=== PATIENT | female | born 1945 | race Caucasian/White ===

== ENCOUNTER → 2017-09-08 | Outpatient (CLI) | payer OTHER, MEDICARE | LOC: FIMAGING 13:41 | PROVIDERS: ATTEND Internal Medicine | DX: Z12.31 Encounter for screening mammogram for malignant neoplasm of breast (principal) | CPT/HCPCS: G0202 ==

== ENCOUNTER 2018-12-05 14:58 | Inpatient (IN) | payer OTHER, MEDICARE ==
[2018-12-05 15:33] LABS: PLATELET COUNT 377 10^3/uL (150-400)
--- NOTE | 2018-12-05 15:38 | EDPHY ---
H & P Stated Complaint: SOB, feeling off balance x 4 days- Time Seen by Provider: 12/05/18 15:03 HPI/ROS: CHIEF COMPLAINT: Shortness of breath, dizziness HISTORY OF PRESENT ILLNESS: 73-year-old female with chronic pain and hypertension presents with shortness of breath and dizziness. She has been on oxycodone and OxyContin for several years. 2 weeks ago, the oxycodone and OxyContin were discontinued and she was placed on Suboxone. Since starting Suboxone, she has felt lightheaded. A few days after starting Suboxone, her dose was cut in half, in hopes of alleviating the dizziness. However, the dizziness has gradually progressed and now she has several episodes daily of dizziness. She describes these episodes as occufring when standing, feeling dizzy, then "falling asleep", and catching herself before she falls. She has not fallen to the ground or hurt herself. She also has a 2 day history of shortness of breath. Shortness of breath at rest, exacerbated by exertion. No recent URI symptoms or fever. Ongoing pedal edema, without recent change. No prior history of cardiopulmonary disease. She also has a 2-3 night history of nocturnal urinary incontinence. She is not incontinent during the day and denies other urinary symptoms. REVIEW OF SYSTEMS: complete 10 point ROS reviewed and is negative except for the noted elements in the HPI - Medical/Surgical History Hx Asthma: No Hx Chronic Respiratory Disease: No Hx Diabetes: No Hx Cardiac Disease: Yes Hx Renal Disease: No Hx Cirrhosis: No Hx Alcoholism: No Hx HIV/AIDS: No Hx Splenectomy or Spleen Trauma: No Other PMH: htn, chronic shoulder pain, hypothyroid, hyperlipidemia, anxiety - Social History Smoking Status: Never smoked Alcohol Use: Sober Drug Use: None Additional Social History: Lives alone in own home - Physical Exam Exam: General Appearance: Alert, pleasant and talkative, seems slightly confused Eyes: Pupils equal and round, no conjunctival pallor or injection ENT, Mouth: Mucous membranes moist Neck: Normal inspection Respiratory: Rales right mid lung field Cardiovascular: Regular rate and rhythm Gastrointestinal: Abdomen is soft and nontender Neurological: Alert and oriented, cranial nerves 2-12 intact, motor 5/5, sensory intact to light touch, ambulates with a steady gait Skin: Warm and dry, no rash Extremities: Nontender, 2+ pedal edema Psychiatric: Mood and affect normal Constitutional: Initial Vital Signs Temperature (C) 36.7 C 12/05/18 15:02 Heart Rate 72 12/05/18 15:02 Respiratory Rate 16 12/05/18 15:02 Blood Pressure 149/68 H 12/05/18 15:02 O2 Sat (%) 86 L 12/05/18 15:02 O2 Delivery Mode Room Air Allergies/Adverse Reactions: Sulfa (Sulfonamide Antibiotics) [Sulfa(Sulfonamide Antibiotics)] Allergy ( Verified 02/25/13 12:42) Other-Enter Comments Home Medications: Medication Instructions Recorded DULoxetine [Cymbalta 60 MG (RX)] 60 mg PO HS 02/25/13 Levothyroxine [Synthroid 100 mcg 100 mcg PO HS 02/25/13 (RX)] Lisinopril [Zestril 40 mg (RX)] 40 mg PO HS 02/25/13 Atorvastatin Calcium [Lipitor 10 5 mg PO HS 12/05/18 mg (*)] Buprenorphine HCl/Naloxone HCl 0.5 each SL BID 12/05/18 [Suboxone 8 mg-2 mg Sl Film] Gabapentin 2,400 mg PO HS 12/05/18 Hydrochlorothiazide [HCTZ (*)] 25 mg PO HS 12/05/18 Omeprazole 40 mg PO HS 12/05/18 amLODIPine BESYLATE [Norvasc 2.5 2.5 mg PO HS 12/05/18 mg (*)] buPROPion XL [Wellbutrin Xl] 450 mg PO HS 12/05/18 Medical Decision Making - Diagnostics EKG Interpretation: EKG interpreted by me reveals normal sinus rhythm, rate 68, minimal ST segment elevation in V2, T-wave flattening in the lateral leads. Interpretation: abnormal EKG Imaging Results: Imaging Impressions Head CT 12/05/18 15:40 Impression: 1. No definite acute findings. If symptoms persist and clinical suspicion warrants, consider MRI. 2. Tiny probable calcification in the right frontal lobe. 3. Diffuse cerebral atrophy, with periventricular and subcortical low attenuation consistent with chronic microvascular ischemic gliosis. Findings discussed with Rhiannon Sequeira M.D., on December 05, 2018 at 1629. Chest/Thorax CTA 12/05/18 15:54 Impression: 1. No visible pulmonary embolus. 2. Bilateral ground glass opacities and interlobular septal thickening with tiny effusions consistent with pulmonary edema. 3. Borderline pulmonary artery prominence, which can be seen with pulmonary artery hypertension. 4. Additional findings as above. Findings discussed with RHIANNON SEQUEIRA 12/05/2018 at 16:39. Imaging: Discussed imaging studies w/ call center trainer Radiologist ED Course/Re-evaluation: This patient presents with multiple symptoms, including a 2 week history of dizziness and 2 day h/o SOB. Oxygen saturation is 86% on room air and chest exam reveals rales in the right mid lung field. EKG reveals no evidence of acute ischemia or dysrhythmia and initial troponin is normal. D-dimer elevated at 2, CT pulmonary angiogram ordered. CT pulmonary angiogram reveals congestive heart failure; no evidence of pulmonary embolism. Lasix 20 mg IV and aspirin given. In regards to confusion, this is most likely secondary to Suboxone and/or hypoxia. CT scan of the brain ordered to rule out intracranial pathology and reveals an old left lacunar infarct, no acute hemorrhage or infarct. Neurologic exam is unremarkable and patient ambulates with a steady gait. No sign of CVA. The hospitalist service was consulted for admission. Differential Diagnosis: Differential diagnosis for shortness of breath includes though it is not limited to pneumonia, pneumothorax, pulmonary embolism, pericarditis, acute coronary syndrome. - Data Points Laboratory Results: Laboratory Results 12/05/18 15:19 12/05/18 15:19 12/05/18 12/05/18 12/05/18 16:38 15:22 15:19 WBC RBC Hgb Hct MCV MCH MCHC RDW Plt Count MPV Neut % (Auto) Lymph % (Auto) Cole % (Auto) Eos % (Auto) Baso % (Auto) Nucleat RBC Rel Count Absolute Neuts (auto) Absolute Lymphs (auto) Absolute Monos (auto) Absolute Eos (auto) Absolute Basos (auto) Absolute Nucleated RBC Immature Gran % Immature Gran # RBC/WBC/PLT Morphology Platelet Estimate D-Dimer Sodium Potassium 3.7 mEq/L mEq/L (3.5-5.2) Chloride Carbon Dioxide Anion Gap BUN Creatinine Estimated GFR Glucose Calcium Magnesium 2.1 mg/dL mg/dL (1.6-2.3) POC Troponin I 0.01 ng/mL ng/mL (0.00-0.08) NT-Pro-B Natriuret Pep TSH Free T4 0.60 ng/dL ng/dL (0.59-2.19) Total T3 0.871 ng/mL L ng/mL (0.970-1.690) Urine Color PALE YELLOW Urine Appearance CLEAR Urine pH 7.0 (5.0-7.5) Ur Specific [place] 1.011 (1.002-1.030) Urine Protein NEGATIVE (NEGATIVE) Urine Ketones 1+ H (NEGATIVE) Urine Blood 2+ H (NEGATIVE) Urine Nitrate NEGATIVE (NEGATIVE) Urine Bilirubin NEGATIVE (NEGATIVE) Urine Urobilinogen NEGATIVE EU EU (0.2-1.0) Ur Leukocyte Esterase NEGATIVE (NEGATIVE) Urine RBC 3-5 /hpf H /hpf (0-3) Urine WBC 0-1 /hpf /hpf (0-3) Ur Epithelial Cells TRACE /lpf /lpf (NONE-1+) Urine Glucose NEGATIVE (NEGATIVE) 12/05/18 12/05/18 12/05/18 15:19 15:19 15:19 WBC RBC Hgb Hct MCV MCH MCHC RDW Plt Count MPV Neut % (Auto) Lymph % (Auto) Cole % (Auto) Eos % (Auto) Baso % (Auto) Nucleat RBC Rel Count Absolute Neuts (auto) Absolute Lymphs (auto) Absolute Monos (auto) Absolute Eos (auto) Absolute Basos (auto) Absolute Nucleated RBC Immature Gran % Immature Gran # RBC/WBC/PLT Morphology Platelet Estimate D-Dimer 2.08 ug/mLFEU H ug/mLFEU (0.00-0.50) Sodium 129 mEq/L L mEq/L (135-145) Potassium 3.4 mEq/L L mEq/L (3.5-5.2) Chloride 91 mEq/L L mEq/L (97-110) Carbon Dioxide 27 mEq/l mEq/l (22-31) Anion Gap 11 mEq/L mEq/L (6-14) BUN 13 mg/dL mg/dL (7-23) Creatinine 0.5 mg/dL L mg/dL (0.6-1.0) Estimated GFR > 60 Glucose 92 mg/dL mg/dL (70-100) Calcium 8.7 mg/dL mg/dL (8.5-10.4) Magnesium POC Troponin I NT-Pro-B Natriuret Pep 1430 pg/mL H pg/mL (0-125) TSH 23.700 uIU/mL H uIU/mL (0.465-4.680) Free T4 Total T3 Urine Color Urine Appearance Urine pH Ur Specific [place] Urine Protein Urine Ketones Urine Blood Urine Nitrate Urine Bilirubin Urine Urobilinogen Ur Leukocyte Esterase Urine RBC Urine WBC Ur Epithelial Cells Urine Glucose 12/05/18 15:19 WBC 8.98 10^3/uL 10^3/uL (3.80-9.50) RBC 3.21 10^6/uL L 10^6/uL (4.18-5.33) Hgb 10.6 g/dL L g/dL (12.6-16.3) Hct 30.3 % L % (38.0-47.0) MCV 94.4 fL fL (81.5-99.8) MCH 33.0 pg pg (27.9-34.1) MCHC 35.0 g/dL g/dL (32.4-36.7) RDW 14.0 % % (11.5-15.2) Plt Count 377 10^3/uL 10^3/uL (150-400) MPV 8.3 fL L fL (8.7-11.7) Neut % (Auto) 88.0 % H % (39.3-74.2) Lymph % (Auto) 3.3 % L % (15.0-45.0) Cole % (Auto) 7.0 % % (4.5-13.0) Eos % (Auto) 1.2 % % (0.6-7.6) Baso % (Auto) 0.2 % L % (0.3-1.7) Nucleat RBC Rel Count 0.0 % % (0.0-0.2) Absolute Neuts (auto) 7.90 10^3/uL H 10^3/uL (1.70-6.50) Absolute Lymphs (auto) 0.30 10^3/uL L 10^3/uL (1.00-3.00) Absolute Monos (auto) 0.63 10^3/uL 10^3/uL (0.30-0.80) Absolute Eos (auto) 0.11 10^3/uL 10^3/uL (0.03-0.40) Absolute Basos (auto) 0.02 10^3/uL 10^3/uL (0.02-0.10) Absolute Nucleated RBC 0.00 10^3/uL 10^3/uL (0-0.01) Immature Gran % 0.3 % % (0.0-1.1) Immature Gran # 0.03 10^3/uL 10^3/uL (0.00-0.10) RBC/WBC/PLT Morphology TNP Platelet Estimate TNP D-Dimer Sodium Potassium Chloride Carbon Dioxide Anion Gap BUN Creatinine Estimated GFR Glucose Calcium Magnesium POC Troponin I NT-Pro-B Natriuret Pep TSH Free T4 Total T3 Urine Color Urine Appearance Urine pH Ur Specific [place] Urine Protein Urine Ketones Urine Blood Urine Nitrate Urine Bilirubin Urine Urobilinogen Ur Leukocyte Esterase Urine RBC Urine WBC Ur Epithelial Cells Urine Glucose Medications Given: Amlodipine Besylate (Norvasc) 2.5 mg PO [facility] Stop: 06/03/19 20:59 Last Admin: 12/05/18 21:51 Dose: 2.5 mg Atorvastatin Calcium (Lipitor) 5 mg PO [facility] Stop: 06/03/19 20:59 Last Admin: 12/05/18 21:49 Dose: 5 mg Bupropion HCl (Wellbutrin Xl) 450 mg PO [facility] Stop: 06/03/19 20:59 Last Admin: 12/05/18 21:48 Dose: 450 mg Duloxetine HCl (Cymbalta) 60 mg PO [facility] Stop: 06/03/19 20:59 Last Admin: 12/05/18 21:50 Dose: 60 mg Gabapentin (Neurontin) 1,200 mg PO BID [facility] Stop: 06/03/19 20:59 Last Admin: 12/05/18 21:47 Dose: 1,200 mg Lisinopril (Zestril) 40 mg PO [facility] Stop: 06/03/19 20:59 Last Admin: 12/05/18 21:48 Dose: 40 mg Pantoprazole Sodium (Protonix) 40 mg PO [facility] Stop: 06/03/19 20:59 Last Admin: 12/05/18 21:48 Dose: 40 mg Discontinued Medications Aspirin (Aspirin) 324 mg PO EDNOW ONE Stop: 12/05/18 16:56 Last Admin: 12/05/18 17:25 Dose: 324 mg Furosemide (Lasix Injection) 20 mg IVP EDNOW ONE Stop: 12/05/18 16:56 Last Admin: 12/05/18 17:25 Dose: 20 mg Potassium Chloride (Klor Packets) 40 meq PO ONCE ONE Stop: 12/05/18 18:00 Last Admin: 12/05/18 21:52 Dose: Not Given Potassium Chloride (Klor-Con) 40 meq PO ONCE ONE Stop: 12/05/18 19:46 Last Admin: 12/05/18 21:53 Dose: 40 meq Potassium Chloride (Klor-Con) 10 meq PO ONCE ONE PRN Reason: Protocol Stop: 12/05/18 21:14 Last Admin: 12/05/18 21:56 Dose: Not Given Point of Care Test Results: Chemistry 12/05/18 15:22 POC Troponin I 0.01 ng/mL ng/mL (0.00-0.08) Departure - [facility] Clinical Impression: Congestive heart failure Qualifiers: Heart failure type: unspecified Heart failure chronicity: acute Qualified Code( s): I50.9 - Heart failure, unspecified Condition: Fair
[2018-12-05] MEDS ORDERED: IOHEXOL 350mgI/ML (OMNIPAQUE) 150 ML BTL IV ONE (16:03)
[2018-12-05] MEDS ORDERED: ASPIRIN 81 MG CHEWABLE TAB PO ONE (16:55)
[2018-12-05] MEDS ORDERED: FUROSEMIDE 20 MG/2 ML VIAL IVP ONE (16:55)
[2018-12-05] MEDS ORDERED: ONDANSETRON 4 MG/2 ML VIAL IVP PRN (17:42)
[2018-12-05] MEDS ORDERED: ACETAMINOPHEN 325 MG TAB PO PRN (17:42)
[2018-12-05] MEDS ORDERED: ONDANSETRON DISINTEGRATING 4 MG TAB PO PRN (17:42)
[2018-12-05] MEDS ORDERED: PROTOCOL POTASSIUM 1 DOSE MISC PRN (17:49)
--- NOTE | 2018-12-05 18:07 | CPEKG ---
Test Reason : OPEN Blood Pressure : / mmHG Vent. Rate : 068 BPM Atrial Rate : 068 BPM P-R Int : 178 ms QRS Dur : 099 ms QT Int : 355 ms P-R-T Axes : 041 012 059 degrees QTc Int : 378 ms Sinus rhythm Minimal ST elevation, anterior leads nonspecific lateral T wave flattening Confirmed by Rhiannon Fuchs ([id number]) on 12/05/2018 6:06:41 PM Referred By: Rhiannon Fuchs Confirmed By:Rhiannon Fuchs
--- NOTE | 2018-12-05 18:13 | PDGENHP ---
<Wendy Sim - Last Filed: 12/05/18 19:30> History and Physical - Chief Complaint Dizziness, shortness of breath - History of Present Illness This is a 73 y/o female with history of chronic pain syndrome who utilized opiates (oxycodone and oxycontin) up until recently. She was switched to Suboxone 2 weeks ago and since that time, she has felt dizziness and describes multiple episodes of being upright and "blacking out" without mechanical injury. She is able to catch herself before she falls. She feels off balance. No preceding indicators to this besides feeling dizzy. She also has noticed shortness of breath, more so with exertion in the last 2 days. She also experienced nocturnal urinary incontinence. Occasionally, she experiences palpitations with no chest pains at rest. Because of her symptoms, she cut her Suboxone in half and stopped taking her blood pressure medication thinking these two medications were the cause. She continued to have these symptoms. She does have pedal edema that seems to be a chronic problem and has been evaluated by her PCP Dr. Shonna Jarrell last year. She is a poor historian however does not seem to have altered mental state. Denies nausea, vomiting, fevers, chills. She is being admitted for further diagnostic work-up and monitoring. Past Medical History 1. Chronic pain syndrome 2. Bipolar disorder 3. Cervical degenerative disc disease 4. Depression 5. Hypertension 6. Hyperlipidemia 7. Hypothyroidism 8. Idiopathic neuropathy 9. Peptic Ulcer Disease 10. Rheumatoid arthritis 11. Urge incontinence Past Surgical History 1. Meniscectomy Social 1. Lives alone. 2. Denies illicit drug use. Denies alcohol use. Smokes 5-6 cigarettes/day. History Information - Allergies/Home Medication List Allergies/Adverse Reactions: Sulfa (Sulfonamide Antibiotics) [Sulfa(Sulfonamide Antibiotics)] Allergy ( Verified 02/25/13 12:42) Other-Enter Comments Home Medications: DULoxetine [Cymbalta 60 MG (RX)] 60 mg PO HS 02/25/13 [Last Taken 12/04/18] Levothyroxine [Synthroid 100 mcg (RX)] 100 mcg PO HS 02/25/13 [Last Taken ] Lisinopril [Zestril 40 mg (RX)] 40 mg PO HS 02/25/13 [Last Taken 12/04/18] Atorvastatin Calcium [Lipitor 10 mg (*)] 5 mg PO HS 12/05/18 [Last Taken ] Buprenorphine HCl/Naloxone HCl [Suboxone 8 mg-2 mg Sl Film] 0.5 each SL BID [Last Taken 12/05/18 09:00] Gabapentin 2,400 mg PO HS 12/05/18 [Last Taken 12/04/18] Hydrochlorothiazide [HCTZ (*)] 25 mg PO HS 12/05/18 [Last Taken 12/04/18] Omeprazole 40 mg PO HS 12/05/18 [Last Taken 12/04/18] amLODIPine BESYLATE [Norvasc 2.5 mg (*)] 2.5 mg PO HS 12/05/18 [Last Taken 12/04] buPROPion XL [Wellbutrin Xl] 450 mg PO HS 12/05/18 [Last Taken 12/04/18] I have personally reviewed and updated: family history, medical history, social history, surgical history Past Medical History: See HPI list - Surgical History Additional surgical history: See HPI list - Family History Positive for: cancer - Social History Smoking Status: Current some day smoker Tobacco Use: Cigarettes Alcohol Use: Sober Drug Use: None Review of Systems Review of Systems: ROS: 10pt was reviewed & negative except for what was stated in HPI & below Constitutional: Reports: no symptoms EENMT: Reports: no symptoms Cardiac: Reports: lightheadedness, palpitations Respiratory: Reports: shortness of breath Gastrointestinal: Reports: constipation Genitourinary: Reports: incontinence, urgency Muscolosketal: Reports: other (Chronic pain) Skin: Reports: no symptoms Neurological: Reports: pre-existing deficit Hematologic/Lymphatic: Reports: no symptoms Immunologic/Allergy: Reports: other (Sulfa) Physical Exam Physical Exam: Lab data and imaging were reviewed Head CT: see A/P Chest/thorax CTA: see A/P EKG: SR, minimal ST elevation WBC: 8.98 RBC/H/H: 3.1/10.6/30.3 D-Dimer: 2.08 Na: 129 K: 3.4 BNP: 1430 Trop: 0.01 Temp Pulse Resp BP Pulse Ox 36.7 C 73 18 146/73 H 97 12/05/18 15:02 12/05/18 17:30 12/05/18 17:24 12/05/18 17:30 12/05/18 17:30 O2 (L/minute) 2 Constitutional: no apparent distress, appears nourished, not in pain Eyes: PERRL, anicteric sclera, EOMI Ears, Nose, Mouth, Throat: moist mucous membranes, hearing normal, ears appear normal, no oral mucosal ulcers Cardiovascular: regular rate and rhythym, systolic murmur, edema (Bilateral 2+ pitting pedal edema) Peripheral Pulses: 1+: dorsalis-pedis (R) (Radial 2+), dorsalis-pedis (L) ( Radial 2+) Respiratory: no respiratory distress, no rales or rhonchi, reduced air movement Gastrointestinal: normoactive bowel sounds, soft, non-tender abdomen, no palpable masses Genitourinary: no bladder fullness, no bladder tenderness Skin: warm, normal color, no rashes or abrasions, no fluctuance, no induration, No mottled Musculoskeletal: full muscle strength, no muscle tenderness, normal joint ROM, no joint effusions Neurologic: AAOx3, sensation intact bilaterally, CN II-XII Intact Psychiatric: not anxious, not encephalopathic, thought process linear, poor memory Lymph, Heme, Immunologic: no cervical LAD, no supraclavicular LAD Lab Data & Imaging Review 12/05/18 15:19 12/05/18 15:19 WBC 8.98 10^3/uL (3.80-9.50) 12/05/18 15: RBC 3.21 10^6/uL (4.18-5.33) L 12/05/18 15: Hgb 10.6 g/dL (12.6-16.3) L 12/05/18 15:19 Hct 30.3 % (38.0-47.0) L 12/05/18 15: MCV 94.4 fL (81.5-99.8) 12/05/18 15: MCH 33.0 pg (27.9-34.1) 12/05/18 15: MCHC 35.0 g/dL (32.4-36.7) 12/05/18 15: RDW 14.0 % (11.5-15.2) 12/05/18 15:19 Plt Count 377 10^3/uL (150-400) 12/05/18 15:19 MPV 8.3 fL (8.7-11.7) L 12/05/18 15:19 Neut % (Auto) 88.0 % (39.3-74.2) H 12/05/18 15:19 Lymph % (Auto) 3.3 % (15.0-45.0) L 12/05/18 15:19 Frontier % (Auto) 7.0 % (4.5-13.0) 12/05/18 15:19 Eos % (Auto) 1.2 % (0.6-7.6) 12/05/18 15:19 Baso % (Auto) 0.2 % (0.3-1.7) L 12/05/18 15:19 Nucleat RBC Rel Count 0.0 % (0.0-0.2) 12/05/18 15:19 Absolute Neuts (auto) 7.90 10^3/uL (1.70-6.50) H 12/05/18 15:19 Absolute Lymphs (auto) 0.30 10^3/uL (1.00-3.00) L 12/05/18 15:19 Absolute Monos (auto) 0.63 10^3/uL (0.30-0.80) 12/05/18 15:19 Absolute Eos (auto) 0.11 10^3/uL (0.03-0.40) 12/05/18 15:19 Absolute Basos (auto) 0.02 10^3/uL (0.02-0.10) 12/05/18 15:19 Absolute Nucleated RBC 0.00 10^3/uL (0-0.01) 12/05/18 15:19 Immature Gran % 0.3 % (0.0-1.1) 12/05/18 15:19 Immature Gran # 0.03 10^3/uL (0.00-0.10) 12/05/18 15:19 RBC/WBC/PLT Morphology TNP 12/05/18 15:19 Platelet Estimate TNP 12/05/18 15:19 D-Dimer 2.08 ug/mLFEU (0.00-0.50) H 12/05/18 15:19 Sodium 129 mEq/L (135-145) L 12/05/18 15:19 Potassium 3.4 mEq/L (3.5-5.2) L 12/05/18 15:19 Chloride 91 mEq/L (97-110) L 12/05/18 15:19 Carbon Dioxide 27 mEq/l (22-31) 12/05/18 15:19 Anion Gap 11 mEq/L (6-14) 12/05/18 15:19 BUN 13 mg/dL (7-23) 12/05/18 15:19 Creatinine 0.5 mg/dL (0.6-1.0) L 12/05/18 15:19 Estimated GFR > 60 12/05/18 15:19 Glucose 92 mg/dL (70-100) 12/05/18 15:19 Calcium 8.7 mg/dL (8.5-10.4) 12/05/18 15:19 POC Troponin I 0.01 ng/mL (0.00-0.08) 12/05/18 15:22 NT-Pro-B Natriuret Pep 1430 pg/mL (0-125) H 12/05/18 15:19 TSH 23.700 uIU/mL (0.465-4.680) H 12/05/18 15:19 Urine Color PALE YELLOW 12/05/18 16:38 Urine Appearance CLEAR 12/05/18 16:38 Urine pH 7.0 (5.0-7.5) 12/05/18 16:38 Ur Specific Girard 1.011 (1.002-1.030) 12/05/18 16:38 Urine Protein NEGATIVE (NEGATIVE) 12/05/18 16:38 Urine Ketones 1+ (NEGATIVE) H 12/05/18 16:38 Urine Blood 2+ (NEGATIVE) H 12/05/18 16:38 Urine Nitrate NEGATIVE (NEGATIVE) 12/05/18 16:38 Urine Bilirubin NEGATIVE (NEGATIVE) 12/05/18 16:38 Urine Urobilinogen NEGATIVE EU (0.2-1.0) 12/05/18 16:38 Ur Leukocyte Esterase NEGATIVE (NEGATIVE) 12/05/18 16:38 Urine RBC 3-5 /hpf (0-3) H 12/05/18 16:38 Urine WBC 0-1 /hpf (0-3) 12/05/18 16:38 Ur Epithelial Cells TRACE /lpf (NONE-1+) 12/05/18 16:38 Urine Glucose NEGATIVE (NEGATIVE) 12/05/18 16:38 Assessment & Plan Plan: This is a 73 y/o female with history of chronic opiate use who recently switched to Suboxone; for the last 2 weeks, she has experienced dizziness, shortness of breath with exertion, and continues to have pedal edema. She is a poor historian and based on her PCP's records, it appears there has been confusion regarding some of her medications and the timing of when to take them. 1. Acute hypoxemia respiratory failure: On RA, she is 86%. She is not oxygen dependent at home. Possible factor to her dizziness. Chest/thorax CTA reveal no visible pulmonary embolus but does show bilateral ground glass opacities and interlobular septal thickening with tiny effusions consistent with pulmonary edema and borderline pulmonary artery prominence. She also smokes cigarettes daily. -Cont tele/pulse ox monitoring -Received Lasix in emergency room 2. Bilateral lower extremity edema: It seems this has been an ongoing issue since last year. BNP 1430. C/o occasional palpitations w/o CP. -Last echo on file was 2012 and was unremarkable. Will repeat echo tonight -BUN/creatinine: 13/0.5. Will recheck BMP tomorrow. -Elevate BLE -First trop negative, cycle one more trop tonight and then another tomorrow morning -Considering right sided heart failure with symptomatic edema and imaging however lung sounds were diminished but no rhonchi -Received lasix in emergency room; received ASA as well 3. Dizziness: She is on multiple medications that can quite possible cause dizziness. She tends to take all her medications at once at night except for lisinopril and Suboxone which she normally takes in the morning. She hasn't taken either one within the last 2-[address] show no definitive findings ; there is a tiny probable calcifications in the right frontal lobe. I evaluated the pt ambulating; no gait disturbances, not off balance. TSH elevated 23.70 -OT/PT to evaluate and treat -Checking Total T3/Free T4; will continue levothyroxine tomorrow morning - dose may need to change depending on these lab values. -Consider MRI tomorrow 4. Hyponatremia, hypokalemia: BUN/Creatinine: 13/0.5 -Will recheck CBC and BMP tomorrow -Will monitor overnight before considering fluid restriction for her hyponatremia -K protocol initiated; will receive K 40 meQ tonight and recheck tomorrow. Magnesium checked (2.1) -Cont tele monitoring 5. Hypertension: currently stable. May continue amlodipine (side effect is pedal edema), lisinopril, hydrochlorothiazide (will change to AM) 6. Chronic pain: recently switched to Suboxone. Initially, the pt thought it was this medication and lisinopril that were causing her symptoms but she has noted that her symptoms have actually worsened in the last few days. It seems the pt is inappropriately using her medications as far as taking them all at nighttime and deciding which ones she will try to stop. -Continue Suboxone for the time being 7. Anxiety/Depression: On wellbutrin, duloxetine, gabapentin. Takes @ HS. I will split gabapentin 2400 mg into an AM and PM dosing (1200 mg in AM and 1200 mg in PM). 8. Urge Incontinence: This too seems to be chronic however she notes nocturnal incontinence. UA unremarkable. Once again, she does take majority of her medications at bedtime including HCTZ. Diet: Cardiac VTE ppx: SCDs Code: Full Dispo: Admit to inpatient <CoryrolandoEvelyn - Last Filed: 12/05/18 22:15> History and Physical - History of Present Illness Review of Systems Review of Systems: Physical Exam Physical Exam: Temp Pulse Resp BP Pulse Ox 36.6 C 74 16 111/53 L 96 12/05/18 20:00 12/05/18 20:00 12/05/18 20:00 12/05/18 20:00 12/05/18 20:00 O2 (L/minute) 2 Lab Data & Imaging Review 12/05/18 15:19 12/05/18 15: WBC 8.98 10^3/uL (3.80-9.50) 12/05/18 15: RBC 3.21 10^6/uL (4.18-5.33) L 12/05/18 15:19 Hgb 10.6 g/dL (12.6-16.3) L 12/05/18 15:19 Hct 30.3 % (38.0-47.0) L 12/05/18 15:19 MCV 94.4 fL (81.5-99.8) 12/05/18 15:19 MCH 33.0 pg (27.9-34.1) 12/05/18 15:19 MCHC 35.0 g/dL (32.4-36.7) 12/05/18 15:19 RDW 14.0 % (11.5-15.2) 12/05/18 15:19 Plt Count 377 10^3/uL (150-400) 12/05/18 15:19 MPV 8.3 fL (8.7-11.7) L 12/05/18 15:19 Neut % (Auto) 88.0 % (39.3-74.2) H 12/05/18 15:19 Lymph % (Auto) 3.3 % (15.0-45.0) L 12/05/18 15:19 Frontier % (Auto) 7.0 % (4.5-13.0) 12/05/18 15:19 Eos % (Auto) 1.2 % (0.6-7.6) 12/05/18 15:19 Baso % (Auto) 0.2 % (0.3-1.7) L 12/05/18 15:19 Nucleat RBC Rel Count 0.0 % (0.0-0.2) 12/05/18 15:19 Absolute Neuts (auto) 7.90 10^3/uL (1.70-6.50) H 12/05/18 15:19 Absolute Lymphs (auto) 0.30 10^3/uL (1.00-3.00) L 12/05/18 15:19 Absolute Monos (auto) 0.63 10^3/uL (0.30-0.80) 12/05/18 15:19 Absolute Eos (auto) 0.11 10^3/uL (0.03-0.40) 12/05/18 15:19 Absolute Basos (auto) 0.02 10^3/uL (0.02-0.10) 12/05/18 15:19 Absolute Nucleated RBC 0.00 10^3/uL (0-0.01) 12/05/18 15:19 Immature Gran % 0.3 % (0.0-1.1) 12/05/18 15:19 Immature Gran # 0.03 10^3/uL (0.00-0.10) 12/05/18 15:19 RBC/WBC/PLT Morphology TNP 12/05/18 15:19 Platelet Estimate TNP 12/05/18 15:19 D-Dimer 2.08 ug/mLFEU (0.00-0.50) H 12/05/18 15:19 Sodium 129 mEq/L (135-145) L 12/05/18 15:19 Potassium 3.7 mEq/L (3.5-5.2) 12/05/18 15:19 Chloride 91 mEq/L (97-110) L 12/05/18 15:19 Carbon Dioxide 27 mEq/l (22-31) 12/05/18 15:19 Anion Gap 11 mEq/L (6-14) 12/05/18 15:19 BUN 13 mg/dL (7-23) 12/05/18 15:19 Creatinine 0.5 mg/dL (0.6-1.0) L 12/05/18 15:19 Estimated GFR > 60 12/05/18 15:19 Glucose 92 mg/dL (70-100) 12/05/18 15:19 Calcium 8.7 mg/dL (8.5-10.4) 12/05/18 15:19 Magnesium 2.1 mg/dL (1.6-2.3) 12/05/18 15:19 POC Troponin I 0.01 ng/mL (0.00-0.08) 12/05/18 15:22 Troponin I < 0.012 ng/mL (0.000-0.034) 12/05/18 20:00 NT-Pro-B Natriuret Pep 1430 pg/mL (0-125) H 12/05/18 15:19 TSH 23.700 uIU/mL (0.465-4.680) H 12/05/18 15:19 Free T4 0.60 ng/dL (0.59-2.19) 12/05/18 15: Total T3 0.871 ng/mL (0.970-1.690) L 12/05/18 15:19 Urine Color PALE YELLOW 12/05/18 16:38 Urine Appearance CLEAR 12/05/18 16:38 Urine pH 7.0 (5.0-7.5) 12/05/18 16:38 Ur Specific Girard 1.011 (1.002-1.030) 12/05/18 16:38 Urine Protein NEGATIVE (NEGATIVE) 12/05/18 16:38 Urine Ketones 1+ (NEGATIVE) H 12/05/18 16:38 Urine Blood 2+ (NEGATIVE) H 12/05/18 16:38 Urine Nitrate NEGATIVE (NEGATIVE) 12/05/18 16:38 Urine Bilirubin NEGATIVE (NEGATIVE) 12/05/18 16:38 Urine Urobilinogen NEGATIVE EU (0.2-1.0) 12/05/18 16:38 Ur Leukocyte Esterase NEGATIVE (NEGATIVE) 12/05/18 16:38 Urine RBC 3-5 /hpf (0-3) H 12/05/18 16:38 Urine WBC 0-1 /hpf (0-3) 12/05/18 16:38 Ur Epithelial Cells TRACE /lpf (NONE-1+) 12/05/18 16:38 Urine Glucose NEGATIVE (NEGATIVE) 12/05/18 16:38 Assessment & Plan Assessment: Congestive heart failure (Acute) Plan: Patient seen and evaluated independently and care plan reviewed with NAYA Sim, agree with her assessment and plan as outlined above. Please see separate note for further details.
--- NOTE | 2018-12-05 19:21 | HOSPPROG ---
Hospitalist Progress Note Assessment/Plan: 73 yo F with hx of non obstructive CAD, HTN, hypothyroid, depression and anxiety and chronic pain with chronic opiate use and dependency presenting with multiple complaints including dizziness/vertigo/sob and new onset nocturnal incontinence presenting with hypoxic respiratory failure # acute hypoxic respiratory failure: with multiple associated complaints that are not clearly related, does have e/o pulmonary edema on CXR and significant lower extremity edema as well as elevated BNP concerning for new onset CHF. Echo ordered for the am. She was given IV lasix x 1 in the ER with good response , will repeat in the am. # acute CHF: as above, presumably patient with new onset CHF, last echo was in 2012 and was wnl, echo ordered for am. Will monitor on tele and trend troponin overnight # hypothyroid: with significantly elevated TSH, low-normal FT4 and slightly low total T3. Patient states she has been compliant with her synthroid but takes it at night along with all of her other medications, so question efficacy/ absorption. Will need to further legal counsel regarding timing of meds and f/u # dizziness/near syncope/vertigo: patient states on arrival to ER that these sxs are so severe that she is unable to walk, but noted to be walking down the [place] several times to the restroom without issue--she admits after that, that her sxs are not currently there. Neuro exam benign, head CT showing old lacunar infarct and non specific tiny right frontal lobe abnormality thought to be likely calcification. If sxs recur would consider brain MRI for further evaluation # CAD: non obstructive per her last cath in 2008, w/u as above # hyponatremia: mild and present frequently in the past as well, likely SIADH in the setting of multiple psych meds versus related to hypothyroid, appears volume overloaded currently # depression/anxiety: continue op meds # chronic pain/continuous opiate use and dependency: recently transitioned from oxycontin and oxycodone to suboxone, denies any sxs of withdrawal, states her pain is controlled # nocturnal incontinence: unclear what this is about but it is noted she takes all of her meds including HCTZ and 2400mg of gabapentin at night--possibly med related, will monitor, get bladder scan, no e/o infection on UA # observation status Patient new to my care. Old records reviewed and summarized as above. Care plan reviewed with NAYA Sim, please see her separate H&P for further details. Objective: Vital Signs Temp Pulse Resp BP Pulse Ox 36.8 C 77 20 130/70 H 94 12/05/18 18:41 12/05/18 18:41 12/05/18 18:41 12/05/18 18:41 12/05/18 18:41 ICD10 Worksheet Patient Problems: Problems Problem Status Onset Congestive heart failure Acute
[2018-12-05] MEDS: POTASSIUM CL 20 MEQ PKT PO ONE ×2 (19:36→21:52)
[2018-12-05] MEDS ORDERED: POTASSIUM CL 20 MEQ TAB PO ONE (19:45)
[2018-12-05] MEDS ORDERED: POTASSIUM CL 10 MEQ TAB PO ONE (21:13)
[2018-12-05] MEDS: GABAPENTIN 400 MG CAP PO SCH (21:47)
[2018-12-05] MEDS: PANTOPRAZOLE SODIUM 40 MG TAB PO SCH (21:48)
[2018-12-05] MEDS: buPROPion XL 150 MG TAB PO SCH (21:48)
[2018-12-05] MEDS: LISINOPRIL 40 MG TAB PO SCH (21:48)
[2018-12-05] MEDS: ATORVASTATIN CALCIUM 10 MG TAB PO SCH (21:49)
[2018-12-05] MEDS: DULoxetine 60 MG CAP PO SCH (21:50)
--- NOTE | 2018-12-05 22:42 | PDMN ---
Medical Necessity Medical necessity: Pt meets IP criteria as of 12/05/2018 per and MICHEAL M-190 ( Heart Failure); los > 2 mn for ongoing tx and evaluation of new onset CHF with acute hypoxic respiratory failure, pulmonary edema, significant BLE edema, and elevated BNP; requiring IV diuretics, further workup, cardiology consultation and management of chronic conditions including hypothyroid, CAD, hyponatremia, depression/anxiety, and chronic pain with chronic opiate use/dependency.
[2018-12-06] MEDS: LEVOTHYROXINE 100 MCG TAB PO SCH (06:39)
[2018-12-06] MEDS: GABAPENTIN 400 MG CAP PO SCH ×2 (08:30→20:45)
[2018-12-06] MEDS ORDERED: POTASSIUM CL 10 MEQ TAB PO ONE ×2 (08:48→19:43)
[2018-12-06] MEDS ORDERED: HYDROCHLOROTHIAZIDE 12.5 MG CAP PO SCH (09:00)
[2018-12-06] MEDS ORDERED: FUROSEMIDE 20 MG/2 ML VIAL IVP SCH (09:15)
[2018-12-06] MEDS ORDERED: BISACODYL 10 MG SUPP PR PRN (10:12)
[2018-12-06] MEDS ORDERED: MAGNESIUM HYDROXIDE 30 ML UDCUP PO PRN (10:12)
[2018-12-06] MEDS ORDERED: POLYETHYLENE GLYCOL 3350 17 GM PKT PO PRN (10:12)
--- NOTE | 2018-12-06 11:49 | ECHO ---
[email or web address] [address] Main: [phone] Fax: Transthoracic Echocardiogram Name: BELEM CAMP MR#: [id number] Study Date: 12/06/2018 Study Time: 07:53 AM Date of : 1945 Age: 73 year(s) Height: 167.6 cm (66 in.) Weight: 68.04 kg (150 lb.) BSA: 1.77 m2 Gender: Female Examination: Echo Indication: Dizziness, Palpitations Image Quality: Adequate Contrast: Requested by: Wendy Sim BP: 121 mmHg/59 mmHg Heart Rate: Rhythm: Indication: Dizziness, Palpitations Procedure Staff Quarter Seamer: Tonya Abbott [facility] Reading Physician: Nina Romo MD Requesting Provider: Conclusions: Normal size left ventricle. Asymmetrical septal LV hypertrophy. Normal global systolic LV function. EF is 63 %. No regional wall motion abnormality. Grade 2 diastolic dysfunction (pseudonormalized LV filling pattern). Elevated left ventricular filling pressures.. Mildly dilated right ventricle. Normal RV function. The left atrium is mildly dilated. The right atrium is mildly dilated. Mild mitral valve regurgitation is present. Mild tricuspid regurgitation is present. Estimated PASP is 46mmHg. Trivial pericardial effusion. Compared with 02/26/2013 the RV is now mildly dilated. Mild TR and MR are now noted. Measurements: Chambers Valvular Assessment AV/MV Valvular Assessment TV/PV Normal Normal Normal Name Value Range Name Value Range Name Value Range Ao Lisy (2D): 2.8 cm (1.4 cm-2.6 AV Vmax: 1.68 m/s (1 m/s-1.7 TR Vmax: 3.19 mm/s ( - ) cm) m/s) TR PGmax: 41 mmHg ( - ) IVSd (2D): 1.2 cm (0.6 cm-1.1 AV maxP mmHg ( - ) syst. PAP: 46 mmHg ( - ) cm) AV meanP mmHg ( - ) PV Vmax: 1.02 m/s (0.6 m/s-0.9 LVDd (2D): 4.4 cm (3.9 cm-5.3 CRISPIN (VTI): 2.0 cm ( - ) m/s) cm) MV E Vmax: 1.30 m/s ( - ) PV PGmax: 4 mmHg ( - ) LVDs (2D): 2.5 cm (2.1 cm-4 MV A Vmax: 0.88 m/s ( - ) cm) MV E/A: 1.48 ( - ) LVPWd (2D): 1.0 cm ( - ) MV PHT: 0.066 s ( - ) Patient: BELEM CAMP Study Date: 12/06/2018 Page 1 of 2 07:53 AM LVOTd 1.9 cm 1.9 cm mm MVA (PHT): 3.3 s ( - ) LVEF (BP): 63 % (>=55 %) RVDd(2D): 3.6 cm (1.9 cm-3.8 cmmm) Continued Measurements: Chambers Valvular Assessment AV/MV Valvular Assessment TV/PV Name Value Name Value Name Value LADs: 3.6 cm MV DecTime: 215 m/s CVP (est.): 5 mmHg LADs Lon.5 cm MV E' Septal: 0.07 m/s LA Area: 17.4 cm2 MV E/E' Septal: 19.30 LA Volume: 58 ml MV E/E' Lateral: 17.10 LA Volume Index: 32.8 ml/m2 RA Area: 20.5 cm2 Additional Vessels Name Value Ao Ascendin.3 cm Inferior Vena Cava: 1.4 cm Findings: Left Ventricle: Normal size left ventricle. Asymmetrical septal LV hypertrophy. Normal global systolic LV function. EF is 63 %. No regional wall motion abnormality. Grade 2 diastolic dysfunction (pseudonormalized LV filling pattern). Elevated left ventricular filling pressures.. Right Ventricle: Mildly dilated right ventricle. Normal RV function. Left Atrium: The left atrium is mildly dilated. Right Atrium: The right atrium is mildly dilated. Mitral Valve: The mitral valve is normal in appearance and function. Mild mitral valve regurgitation is present. No mitral stenosis is present. Aortic Valve: The aortic valve is tri-leaflet. There is no significant aortic valve regurgitation. No aortic valve stenosis is present. Tricuspid Valve: The tricuspid valve appears normal. Mild tricuspid regurgitation is present. The pulmonary artery pressure is mildly increased. Estimated PASP is 46mmHg. Pulmonic Valve: The pulmonic valve is normal in appearance and function. There is no pulmonic regurgitation seen. Aorta: The aorta is normal. Normal size aortic root measuring 2.8 cm. Normal size ascending aorta measuring 3.3 cm. IVC: The IVC is normal sized. Pericardium: Trivial pericardial effusion. (No Signature Object) Patient: BELEM CAMP Study Date: 12/06/2018 Page 2 of 2 07:53 AM [id number]
--- NOTE | 2018-12-06 12:07 | ASMTCMCOM ---
CM Note CM Note Notes: Pts case discussed in tx rounds. Pt s a 73 y/o female admitted for CHF. Therapies have been ordered and awaiting recommendations. Needs are TBD at this time. CM to follow. Plan: TBD Date Signed: 12/06/2018 12:07 PM Electronically Signed By:GENESIS Fulton
--- NOTE | 2018-12-06 14:05 | HOSPPROG ---
Hospitalist Progress Note Assessment/Plan: 73 yo F with hx of non obstructive CAD, HTN, hypothyroid, depression and anxiety and chronic pain with chronic opiate use and dependency presenting with multiple complaints including dizziness/vertigo/sob and new onset nocturnal incontinence presenting with hypoxic respiratory failure. 1. Acute on chronic diastolic CHF: TTE with worsened diastolic dysfunction, also mild MR - Lasix 20mg IV BID, monitor I/Os and weight - BP control per below - Serial echo as outpt to monitor MR 2. Acute hypoxemic respiratory insufficiency: Due to pulm edema - Diuresing as above, wean as able 3. HTN: Controlled - Continue lisinopril (great for afterload reduction w/MR), and low-dose amlodipine - Stopped hctz 4. Hypothyroidism: TSH high, fT4 and fT3 low. Suspect r/t malabsorption (taking incorrectly) - Counseled on appropriate timing of meds - Continue LT4 replacement at current dose, needs recheck thyroid studies in 6 weeks 5. Dizziness/near syncope/?LOC: Unclear if this is related to hypoxia vs inner ear pathology vs meds vs other - PT/OT - currently recommending SNF - Continue telemetry. Consider cardiac event monitor at discharge - Decreasing gabapentin from 1200 to 900mg in AM 6. Hyponatremia: Likely multifactorial from volume overload and ? siadh from pysch meds - Diurese. Recheck in AM 7. Chronic pain/continuous opiate use and dependency - Pharmacy obtaining refill on her home suboxone so she can continue here 8. CAD: Non-obstructive on 2008 cath. No chest pain. Trops negative. Continue statin. 9. Depression/anxiety: Home meds 10. Nocturnal incontinence: Chronic issue. 11. Anemia: Normocytic. No e/o bleeding. VTE ppx: LMWH Code: full Diet: low salt Dispo: Switch to inpatient for ongoing IV diuresis. May need SNF at discharge Subjective: Breathing ok but not at baseline. Still feeling unsteady when on feet. +leg swelling for several months. No episodes of "passing out" since being here. Objective: Vital Signs Temp Pulse Resp BP Pulse Ox 36.6 C 62 14 127/64 H 94 12/06/18 12:05 12/06/18 12:05 12/06/18 12:05 12/06/18 12:05 12/06/18 12:05 Laboratory Results 12/06/18 04:13 12/06/18 04:13 12/05/18 12/06/18 12/07/18 05:59 05:59 05:59 Intake Total 500 240 Output Total 850 650 Balance -350 -410 ICD10 Worksheet Patient Problems: Problems Problem Status Onset Congestive heart failure Acute
[2018-12-06] MEDS: FUROSEMIDE 20 MG/2 ML VIAL IVP SCH (16:36)
[2018-12-06] MEDS: buPROPion XL 150 MG TAB PO SCH (20:44)
[2018-12-06] MEDS: DULoxetine 60 MG CAP PO SCH (20:45)
[2018-12-06] MEDS: ATORVASTATIN CALCIUM 10 MG TAB PO SCH (20:45)
[2018-12-06] MEDS: LISINOPRIL 40 MG TAB PO SCH (20:46)
[2018-12-06] MEDS: SENNOSIDES/DOCUSATE SODIUM TAB PO SCH (21:20)
[2018-12-06] MEDS: PANTOPRAZOLE SODIUM 40 MG TAB PO SCH (21:21)
[2018-12-07] MEDS: LEVOTHYROXINE 100 MCG TAB PO SCH (06:32)
[2018-12-07] MEDS: SENNOSIDES/DOCUSATE SODIUM TAB PO SCH ×2 (09:08→22:24)
[2018-12-07] MEDS: GABAPENTIN 300 MG CAP PO SCH (09:08)
[2018-12-07] MEDS: FUROSEMIDE 20 MG/2 ML VIAL IVP SCH (09:08)
[2018-12-07] MEDS: ENOXAPARIN 40 MG/0.4 ML SYR SC SCH (09:09)
--- NOTE | 2018-12-07 09:36 | HOSPPROG ---
Hospitalist Progress Note Assessment/Plan: #Acute on chronic diastolic CHF: diastolic dysfunction worse on echo, mild MR - Change to PO Lasix. BP at goal #Acute hypoxemic respiratory insufficiency: Due to pulm edema, h/o tobacco. Rec outpatient PFTs # HTN: lisinopril, amlodipine. HCTZ stopped # Hypothyroidism: TSH high, fT3/4 low. Suspect r/t malabsorption (taking incorrectly) - Counseled on appropriate timing of meds - Continue LT4 replacement at current dose, needs recheck thyroid studies in 4 weeks # Dizziness/near syncope/?LOC: suspect multifactorial: hypoNa, meds, hypoxia. - PT/OT - currently recommending SNF - Continue telemetry. Consider cardiac event monitor at discharge - Decreasing gabapentin from 1200 to 900mg in AM #Hyponatremia: Likely multifactorial from volume overload and ? siadh from pysch meds, HCTZ - stable with diuresis #. Chronic pain/continuous opiate use and dependency: Suboxone #CAD: Non-obstructive on 2008 cath. No chest pain. Trops negative. Continue statin. #Depression/anxiety: Home meds #. Nocturnal incontinence: Chronic issue. # Anemia: Normocytic. No e/o bleeding. #Disp: inpatient admission for monitored diuresis, PT Subjective: Breathing improved. "Overall feel better" Objective: Vital Signs Temp Pulse Resp BP Pulse Ox 36.6 C 70 16 125/60 H 91 L 12/07/18 07:28 12/07/18 07:28 12/07/18 07:28 12/07/18 07:28 12/07/18 07:28 Laboratory Results 12/07/18 04:14 12/07/18 04:14 12/06/18 12/07/18 12/08/18 05:59 05:59 05:59 Intake Total 500 840 Output Total 850 2050 300 Balance -350 -1210 -300 - Time Spent With Patient Time Spent with Patient: greater than 35 minutes Time Spent with Patient: Greater than 35 minutes spent on this patients care, greater than 50% of time spent counseling, educating, and coordinating care regarding the above mentioned plan. - Physical Exam Constitutional: no apparent distress Eyes: PERRL Ears, Nose, Mouth, Throat: moist mucous membranes Cardiovascular: regular rate and rhythym, No edema Respiratory: no respiratory distress, No inspiratory crackles Gastrointestinal: normoactive bowel sounds Genitourinary: no bladder fullness Skin: warm Musculoskeletal: full muscle strength Neurologic: AAOx3, CN II-XII Intact ICD10 Worksheet Patient Problems: Problems Problem Status Onset Chronic Disease Mgmt/Transitional Care Acute Congestive heart failure Acute
--- NOTE | 2018-12-07 14:53 | ASMTCMCOM ---
CM Note CM Note Notes: 12/07/2018 Case Management Note Discussed pt during rounds. PT recommending SNF rehab. Met w/pt to discuss. Pt in agreement. Faxed referrals to [facility] and [facility] in [place]. Provided list of SNF rehabs to pt. Daughter Tyra can be reached at [phone]. Tyra to visit facilities per pt. Case Management d/c poc: SNF rehab pending acceptance. Case Management to follow. Date Signed: 12/07/2018 02:52 PM Electronically Signed By:Gaby Aguiar RN
[2018-12-07] MEDS ORDERED: POTASSIUM CL 10 MEQ TAB PO ONE (20:59)
[2018-12-07] MEDS: DULoxetine 60 MG CAP PO SCH (22:22)
[2018-12-07] MEDS: PANTOPRAZOLE SODIUM 40 MG TAB PO SCH (22:22)
[2018-12-07] MEDS: ATORVASTATIN CALCIUM 10 MG TAB PO SCH (22:22)
[2018-12-07] MEDS: GABAPENTIN 400 MG CAP PO SCH (22:22)
[2018-12-07] MEDS: buPROPion XL 150 MG TAB PO SCH (22:22)
[2018-12-07] MEDS: LISINOPRIL 40 MG TAB PO SCH (22:23)
[2018-12-08] MEDS: ENOXAPARIN 40 MG/0.4 ML SYR SC SCH (08:42)
[2018-12-08] MEDS: LEVOTHYROXINE 100 MCG TAB PO SCH (08:42)
[2018-12-08] MEDS: SENNOSIDES/DOCUSATE SODIUM TAB PO SCH ×2 (08:46→20:53)
[2018-12-08] MEDS ORDERED: FUROSEMIDE 20 MG TAB PO SCH (09:00)
[2018-12-08] MEDS: GABAPENTIN 300 MG CAP PO SCH ×2 (11:56→20:43)
--- NOTE | 2018-12-08 13:34 | HOSPPROG ---
Hospitalist Progress Note Assessment/Plan: #Acute on chronic diastolic CHF: diastolic dysfunction worse on echo, mild MR -hold Lasix #Acute hypoxemic respiratory insufficiency: -min edema on repeat CXR - h/o tobacco. -check viral PCR # HTN: hold lisinopril, amlodipine. HCTZ stopped #Hypothyroidism: TSH high, fT3/4 low. Suspect r/t malabsorption (taking incorrectly) -Counseled on appropriate timing of meds - Continue LT4 replacement at current dose, needs recheck thyroid studies in 4 weeks # Dizziness/near syncope/?LOC: suspect multifactorial: hypoNa, meds, hypoxia. -hold BP meds with soft BP -AM cortisol #Hyponatremia: mixed picture with poor solute intake, possible SIADH (on Cymbalta). Trial small IVFs, repeat BMP. -If drops, then fluid-restrict #Chronic pain/continuous opiate use and dependency: Suboxone -Hold AM Gabapentin, half evening dose. Watch for withdrawal #CAD: Non-obstructive on 2008 cath. No chest pain. Trops negative. Continue statin. #Depression/anxiety: Home meds #Nocturnal incontinence: Chronic issue. # Anemia: Normocytic. No e/o bleeding. #Disp: inpatient admission for monitored diuresis, PT Subjective: "foggy after meds last night" Objective: Vital Signs Temp Pulse Resp BP Pulse Ox 36.7 C 65 26 H 105/56 L 98 12/08/18 12:02 12/08/18 12:03 12/08/18 12:02 12/08/18 12:03 12/08/18 12:02 Laboratory Results 12/08/18 08:01 12/08/18 08:01 12/07/18 12/08/18 12/09/18 05:59 05:59 05:59 Intake Total 840 900 Output Total 2049 2049 Balance -1210 -1150 - Time Spent With Patient Time Spent with Patient: greater than 35 minutes Time Spent with Patient: Greater than 35 minutes spent on this patients care, greater than 50% of time spent counseling, educating, and coordinating care regarding the above mentioned plan. - Physical Exam Constitutional: no apparent distress Ears, Nose, Mouth, Throat: moist mucous membranes Cardiovascular: regular rate and rhythym, No edema Respiratory: no respiratory distress, No inspiratory crackles Gastrointestinal: normoactive bowel sounds Genitourinary: no bladder fullness, No ryan in urethra Musculoskeletal: full muscle strength Neurologic: AAOx3, CN II-XII Intact Psychiatric: interacting appropriately ICD10 Worksheet Patient Problems: Problems Problem Status Onset Chronic Disease Mgmt/Transitional Care Acute Congestive heart failure Acute
[2018-12-08] MEDS: predniSONE 20 MG TAB PO SCH (15:56)
[2018-12-08] MEDS ORDERED: NS 1,000 ML IV SCH (18:30)
[2018-12-08] MEDS: buPROPion XL 150 MG TAB PO SCH (20:43)
[2018-12-08] MEDS: ATORVASTATIN CALCIUM 10 MG TAB PO SCH (20:43)
[2018-12-08] MEDS: PANTOPRAZOLE SODIUM 40 MG TAB PO SCH (20:44)
[2018-12-08] MEDS ORDERED: GABAPENTIN 300 MG CAP PO SCH (21:00)
[2018-12-09] MEDS: LEVOTHYROXINE 100 MCG TAB PO SCH (10:10)
[2018-12-09] MEDS: ENOXAPARIN 40 MG/0.4 ML SYR SC SCH (10:11)
[2018-12-09] MEDS: SODIUM CHLORIDE 1,000 MG TAB PO SCH ×3 (10:11→16:43)
[2018-12-09] MEDS: SENNOSIDES/DOCUSATE SODIUM TAB PO SCH ×2 (10:12→22:12)
[2018-12-09] MEDS: predniSONE 20 MG TAB PO SCH (10:12)
[2018-12-09] MEDS: FUROSEMIDE 20 MG TAB PO SCH ×2 (10:12→16:40)
--- NOTE | 2018-12-09 11:55 | HOSPPROG ---
Hospitalist Progress Note Assessment/Plan: #Acute on chronic diastolic CHF: diastolic dysfunction worse on echo, mild MR -PO Lasix #Hyponatremia: Mixed picture with SIADH, diuretics. (On Cymbalta),but dropped with IVFs -fluid restrict, salt tabs #Acute hypoxemic respiratory insufficiency: -min edema on repeat CXR -h/o tobacco. #HTN: Norvasc. ACEI on hold, HCTZ stopped #Hypothyroidism: TSH high, fT3/4 low. Suspect r/t malabsorption (taking incorrectly) -Counseled on appropriate timing of meds -Continue LT4 replacement at current dose, needs recheck thyroid studies in 4 weeks #Dizziness/near syncope/?LOC: suspect multifactorial: hypoNa, meds, hypoxia. -hold BP meds with soft BP -AM cortisol #Hyponatremia: seems mildly dry with diuresis Trial small IVFs, repeat BMP. If drops, then fluid-restrict -Cymbalta, TSH may be causing SIADH #Chronic pain/continuous opiate use and dependency: Suboxone -Hold AM Gabapentin, half evening dose #CAD: Non-obstructive on 2008 cath. No chest pain. Trops negative. Continue statin. #Depression/anxiety: will restart Cymbalta #Nocturnal incontinence: Chronic issue. # Anemia: Normocytic. No e/o bleeding. #Disp: inpatient admission for monitored diuresis, PT Subjective: slept well, does not feel groggy Objective: Vital Signs Temp Pulse Resp BP Pulse Ox 36.6 C 69 20 125/69 H 90 L 12/09/18 11:20 12/09/18 11:20 12/09/18 11:20 12/09/18 11:20 12/09/18 11:20 Microbiology 12/08/18 18:30 Respiratory Panel (PCR) - Final Nasal, Sinus - Swab No Organism Detected By Pcr Laboratory Results 12/08/18 08:01 12/09/18 07:35 12/08/18 12/09/18 12/10/18 05:59 05:59 05:59 Intake Total 900 780 Output Total 2050 600 Balance -1150 180 - Time Spent With Patient Time Spent with Patient: greater than 35 minutes Time Spent with Patient: Greater than 35 minutes spent on this patients care, greater than 50% of time spent counseling, educating, and coordinating care regarding the above mentioned plan. - Physical Exam Constitutional: no apparent distress Ears, Nose, Mouth, Throat: moist mucous membranes Cardiovascular: regular rate and rhythym, No edema Respiratory: no respiratory distress Gastrointestinal: normoactive bowel sounds Genitourinary: no bladder fullness Musculoskeletal: full muscle strength Neurologic: CN II-XII Intact Psychiatric: poor insight, other (tangential) ICD10 Worksheet Patient Problems: Problems Problem Status Onset Chronic Disease Mgmt/Transitional Care Acute Congestive heart failure Acute
[2018-12-09] MEDS: GABAPENTIN 300 MG CAP PO SCH (22:10)
[2018-12-09] MEDS: ATORVASTATIN CALCIUM 10 MG TAB PO SCH (22:10)
[2018-12-09] MEDS: buPROPion XL 150 MG TAB PO SCH (22:10)
[2018-12-09] MEDS: PANTOPRAZOLE SODIUM 40 MG TAB PO SCH (22:11)
[2018-12-09] MEDS: DULoxetine 60 MG CAP PO SCH (22:11)
[2018-12-10] MEDS: LEVOTHYROXINE 100 MCG TAB PO SCH (03:55)
[2018-12-10] MEDS: SODIUM CHLORIDE 1,000 MG TAB PO SCH ×2 (09:46→17:29)
[2018-12-10] MEDS: ENOXAPARIN 40 MG/0.4 ML SYR SC SCH (09:46)
[2018-12-10] MEDS: predniSONE 20 MG TAB PO SCH (09:47)
[2018-12-10] MEDS: FUROSEMIDE 20 MG TAB PO SCH ×2 (09:47→17:28)
[2018-12-10] MEDS: SENNOSIDES/DOCUSATE SODIUM TAB PO SCH (09:47)
--- NOTE | 2018-12-10 12:21 | PDIAF ---
- Diagnosis Diagnosis: SIADH, Diastolic HF Code Status: Full Code - Medication Management Discharge Medications: electronically signed and located in the Home Medication List. - Orders Services needed: Registered Nurse, Master Medical Director Of Hospice, Physical Therapy, Occupational Therapy Diet Recommendation: cardiac -low fat low salt, fluid restriction (use comment for amount) (1500ml a daily until sodium normalizes, then 2000mL) Diet Texture: Regular Texture Diet Additional Instructions: 1. Needs repeat thyroid studies in 3 weeks (was not taking Synthroid properly) 2. Referral to Cardiology 3. Can uptitrate Lisinopril if need. NO HCTZ 4. If increased pain, can add Gabapentin 300mg in morning 4. Daily sodium: Can stop salt tabs once normalizes. Continue 2L fluid restriction - Labs/Radiology BMP Date: 12/11/18 (daily. Can stop salt tabs once Na normalized. Cont 2L fluid restriction) - Follow Up Care Current Providers and Referrals: Lukas Castro MD [Medical Doctor] - 12/17/18 1:30 pm (the following appointment has been made for you) Shonna Jarrell MD [Primary Care Provider] - As per Instructions
--- NOTE | 2018-12-10 12:49 | GDS ---
[f rep st] DISCHARGE SUMMARY DISCHARGE DIAGNOSES: 1. Acute on chronic diastolic heart failure. 2. Hyponatremia, SIADH. 3. Acute hypoxic respiratory insufficiency. 4. Hypertension. 5. Hypothyroidism. 6. Dizziness, near syncope. 7. Chronic pain/opioid dependency. 8. Coronary artery disease. 9. Depression. 10. Normocytic anemia. 11. Bipolar disorder. 12. Depression. 13. Peptic ulcer disease. 14. Rheumatoid arthritis. HISTORY OF PRESENT ILLNESS: A 73-year-old female with chronic pain syndrome on opioids, who was switched to Suboxone 2 weeks ago and since that time, has fell dizzy and describes multiple episodes of blacking out without injury. She feels off-balance. No chest pain, palpitations. She has noticed increased shortness of breath. Because of her symptoms, she cut her Suboxone in half and stopped taking her blood pressure medications thinking these 2 medications were the cause. HOSPITAL COURSE: 1. Acute on chronic diastolic heart failure: grade 2 diastolic dysfunction. Lasix 20 mg twice daily. 2. Hyponatremia/SIADH: sodium dropped to 127, now 132 with a fluid restriction 1500 mL and salt tablets. 3. Hypertension: Stop hydrochlorothiazide indefinitely. Low-dose lisinopril and Norvasc. 4. Hypothyroidism: TSH was 24. Suspect malabsorption since taking incorrectly. Continue the current dose and repeat labs in 3 weeks. 5. Dizziness/near-syncope: blood pressure has normalized. 6. Chronic pain/continuous opioid use: Suboxone. Oversedated with high-dose gabapentin.Was taking 2400mg qhs. Dose-reduced to 600mg qhs with good pain control and no e/o withdrawal. If does have increased pain, anxiety or confusion , could be having withdrawal. 7. CAD: nonobstructive on 2008 catheterization. No chest pain, negative trops. Statin. 8. Depression/anxiety: Cymbalta. 9. Normocytic anemia: No evidence of bleeding. 10. Acute hypoxic respiratory insufficiency: from decompensated diastolic heart failure. Room air sat was 83, requiring oxygen. She does have a history of tobacco, which could be contributing. FOLLOWUP: 1. Repeat thyroid studies in 3 weeks. 2. Refer to Cardiology for diastolic heart failure. 3. Blood pressure: Can up titrate lisinopril or Norvasc if needed. No hydrochlorothiazide. 4. If increased pain, can add gabapentin 300 mg in the morning with caution as was over-sedated at admission. 5. SIADH: Check daily sodium. Once normalized can stop fluid restriction and salt tabs. PHYSICAL EXAMINATION: VITAL SIGNS: Today, temperature 36.5, blood pressure 127 /57, heart rate in the 50s, 83% on room air, 91% on 1 L. GENERAL: She is sitting up in bed smiling in no acute distress. HEENT: PERRLA. Moist mucous membranes. CARDIOVASCULAR: Regular rate and rhythm. LUNGS: Clear. EXTREMITIES: Trace ankle edema. ABDOMEN: Soft, nontender, nondistended. Positive bowel sounds. : No Leonard. MUSCULOSKELETAL: 5/5 upper and lower extremities. NEURO: 2 through 12 intact. She answers questions appropriately. TIME SPENT ON DISCHARGE: Greater than 30 minutes bedside counseling patient on medications and followup plan and coordinating with Case Management. /[id number]/MODL MTDD
[2018-12-10 13:27] VITALS: BP 137/70
--- NOTE | 2018-12-10 13:32 | ASMTLACE ---
LACE Length of stay for Answers: 4-6 days current admission Acuity / Level of Answers: Yes Care: Did the patient have an inpatient admission? Comorbidities - select Answers: Opioid dependence all that apply / Chronic pain Peptic ulcer disease Other Notes: HTN; Hypothyroid; HLD # of Emergency department Answers: 1-2 visits in the last 6 months Social determinants Answers: Mental health diagnosis (anxiety, depression, pers onality disorders, etc.) Score: 18 Date Signed: 12/10/2018 01:31 PM Electronically Signed By:Floridalma Collazo RN
--- NOTE | 2018-12-10 13:34 | ASMTDCNOTE ---
Case Management Discharge Discharge Order Complete? Answers: Yes Patient to Obtain Answers: Other Notes: [facility] Medications Transportation Arranged Answers: Other Notes: [facility] Transport will Pick (Date 12/10/2018 05:00 PM & Time) Faxed Final Orders Answers: Yes Family Notified Answers: Yes Discharge Comments Notes: Patient discharging to [facility] SNF. Transport arranged by Denice at [facility]. ALLYN Moran to call report. Date Signed: 12/10/2018 01:34 PM Electronically Signed By:Floridalma Collazo RN
--- NOTE | 2018-12-11 14:52 | ASDISCHSUM ---
Discharge Information Plan Status:SNF Medically Cleared to Leave:12/09/2018 Discharge Date:12/10/2018 04:59 PM CM D/C Disposition: ADT D/C Disposition:[facility] Facility Projected Discharge Date:12/10/2018 11:00 AM Transportation at D/C: Discharge Delay Reason: Follow-Up Date:12/10/2018 11:00 AM Discharge Slot: Final Diagnosis: Placement Information Referral Type:*Long-Term/SNF Referral ID:[id number] Provider Name:Octavia valencia [place] Address 1:[address] [facility] [facility] Phone Number: Address 2: Fax Number: [facility]:[place] Selection Factors: State:[place] Patient Contact Information Contact Name:DARCIE Relationship:Daughter Address:[address] City:[place] Alternate Phone: State/Zip Code:[place] [address] Email: Financial Information Financial Class:Medicare Primary Plan Desc:MEDICARE INPATIENT Primary Plan Number:[id number] Secondary Plan Desc:[employer]/MDR SUPPLEMENT Secondary Plan Number:[id number] Assessment Information LACE LACE Length of stay for Answers: 4-6 days current admission Acuity / Level of Answers: Yes Care: Did the patient have an inpatient admission? Comorbidities - select Answers: Opioid dependence all that apply / Chronic pain Peptic ulcer disease Other Notes: HTN; Hypothyroid; HLD # of Emergency department Answers: 1-2 visits in the last 6 months Social determinants Answers: Mental health diagnosis (anxiety, depression, pers onality disorders, etc.) Score: 18 Date Signed: 12/10/2018 01:31 PM Electronically Signed By:Floridalma Collazo RN [facility] CM Progress Note CM Note CM Note Notes: Pts case discussed in tx rounds. Pt s a 73 y/o female admitted for CHF. Therapies have been ordered and awaiting recommendations. Needs are TBD at this time. CM to follow. Plan: TBD Date Signed: 12/06/2018 12:07 PM Electronically Signed By:GENESIS Fulton [facility] CM Progress Note CM Note CM Note Notes: 12/07/2018 Case Management Note Discussed pt during rounds. PT recommending SNF rehab. Met w/pt to discuss. Pt in agreement. Faxed referrals to [facility] and [facility] in [place]. Provided list of SNF rehabs to pt. Daughter Tyra can be reached at [phone]. Tyra to visit facilities per pt. Case Management d/c poc: SNF rehab pending acceptance. Case Management to follow. Date Signed: 12/07/2018 02:52 PM Electronically Signed By:Gaby Aguiar RN Case Management Discharge Plan Note Case Management Discharge Discharge Order Complete? Answers: Yes Patient to Obtain Answers: Other Notes: [facility] Medications Transportation Arranged Answers: Other Notes: [facility] Transport will Pick (Date 12/10/2018 05:00 PM & Time) Faxed Final Orders Answers: Yes Family Notified Answers: Yes Discharge Comments Notes: Patient discharging to [facility] SNF. Transport arranged by Denice at [facility] ALLYN Moran to call report. Date Signed: 12/10/2018 01:34 PM Electronically Signed By:Floridalma Collazo RN Intervention Information Intervention Type:*IM-Signed Date of Service:12/10/2018 02:40 PM Patient Type:Inpatient Staff Member:Elysia Alexandre Hours: Discipline: Severity: Comment:
== END 2018-12-10 16:59 | DRG 291 ==
LOC: F2W 18:30
PROVIDERS: ADMIT Internal Medicine; ATTEND Internal Medicine
DX: I11.0 Hypertensive heart disease with heart failure (principal); I50.33 Acute on chronic diastolic (congestive) heart failure; J96.01 Acute respiratory failure with hypoxia; E87.1 Hypo-osmolality and hyponatremia; F11.20 Opioid dependence, uncomplicated; E03.9 Hypothyroidism, unspecified; G89.29 Other chronic pain; I25.10 Atherosclerotic heart disease of native coronary artery without angina pectoris; D64.9 Anemia, unspecified; F31.9 Bipolar disorder, unspecified; M06.9 Rheumatoid arthritis, unspecified; K27.9 Peptic ulcer, site unspecified, unspecified as acute or chronic, without hemorrhage or perforation; E78.5 Hyperlipidemia, unspecified; N39.41 Urge incontinence; Z72.0 Tobacco use
CPT/HCPCS: 82607-90; 84480-90; 84484-ER; 92507-GN; 92523-GN; 96374; 97110-GP; 97116-GP; 97162-GP; 97166-GO; 97530-GO; 97535-GO; J1650; J1940; J2405; J7512; Q9967